=== PATIENT | female | born 1980 | race Caucasian/White ===

== ENCOUNTER 2024-05-11 09:47 | Emergency (ER) | payer OTHER, SELFPAY ==
[2024-05-11 09:58] VITALS: BP 128/81
--- NOTE | 2024-05-11 10:16 | ED.GENMED ---
History of Present Illness
General
Chief Complaint: Headache
Source: patient
Time Seen by Provider: 05/11/24 10:06
History of Present Illness
History of Present Illness:
43yoF with a history of migraines presenting with her for evaluation of a migraine x 2 weeks. She reports right sided temporal pain that intermittently radiates to the occipital region. Pain is currently a 5-6/10 in severity and a 7/10 in
severity at its worst. She denies this being the worst headache of her life but she has never had a headache last this long before. Her headache feels similar to her previous migraines. She has taken memantine, rizatriptan, and ibuprofen without
relief. She reports associated photophobia and phonophobia. She also reports tunnel vision which is classic for her migraines. Patient denies any head trauma, fevers, chills, vomiting, URI symptoms. Patient moved to the area 2 years ago and has
not reestablished with a neurologist.
Phy Exam
General Physical Exam
General Presentation: well appearing and no apparent distress
General age: appears stated age
General Skin: warm and dry
General Habitus: normal
General Mental: alert
ENT Exam
ENT Exam: TM's normal, neck supple and normocephalic
Additional ENT: No meningismus
Eye Exam
Eye Exam: PERRL and conjunctiva normal
Cardiovascular Exam
Cardiovascular Exam: regular rate/rhythm and no murmur
Pulmonary Exam
Pulmonary Exam: lungs clear, no respiratory distress, no crackles and no wheezing
Neurological Exam
Neurological Exam: alert, speech normal and other (No focal neuro deficits)
Olena Coma Scale
Eye Opening: Spontaneous
Verbal Response: Oriented
Motor Response: Obeys Commands
GCS Total Score: 15
Skin Exam
Skin Exam: normal color and warm/dry
Psychiatric Exam
Psychiatric Exam: normal mood/affect
Course
Orders/Labs/Results
Orders:
Orders
05/11/24 10:15
0.9% Sodium Chloride 1000 ml [Nss] 1,000 ml IV BOLUS
Dexamethasone Sod Phosphate [Decadron] 10 mg IV NOW STA
Diphenhydramine [Benadryl] 25 mg IV NOW STA
Ketorolac [Toradol] 15 mg IV NOW STA
Magnesium Sulfate 1 G/D5w [Magnesium Sulfate] 1 gm in 100 ml IV NOW
Metoclopramide [Reglan] 10 mg IV NOW STA
Test Result ONCE
05/11/24 10:36
HCG, Urine Qualitative Screen Urgent
Date Specimen was Collected: 05/11/24
Time Specimen was Collected: 10:17
Vital Signs
Initial and Last Documented VS:
Initial Vital Signs
Temp Pulse Resp BP Pulse Ox
97.9 F 90 16 128/81 100
05/11/24 09:58 05/11/24 09:58 05/11/24 09:58 05/11/24 09:58 05/11/24 09:58
Last Documented Vital Signs
Temp Pulse Resp BP Pulse Ox
97.9 F 90 16 128/81 100
05/11/24 09:58 05/11/24 09:58 05/11/24 09:58 05/11/24 09:58 05/11/24 09:58
MDM/Problems Addressed
Differential Diagnosis Includes:
43yoF here with a headache x 2 weeks. Hx of migraines and this feels similar. No head trauma, fevers, neck stiffness. Pain currently a 5-6/10 in severity. She is afebrile and hemodynamically stable. She is well appearing in no distress. No focal
deficits or meningismus noted on exam. Differential diagnosis includes but is not limited to: migraine, tension, headache, doubt subarachnoid hemorrhage, doubt meningitis
Initial ED plan: Defer head imaging at this time. Will give IV migraine cocktail and reassess.
*Critical Care Note
Total Time (30-74mins, 75-104mins- exclusive of procedures): Not Applicable
Update Note
Update Note:
Patient feeling improved on reassessment. Headache is currently a 3/10 in severity and she feels comfortable with discharge. Advised f/u with PCP and neurology. ED return precautions discussed. She was discharged in stable condition.
ED Attending Note
-
Portions of this chart may have been created with voice recognition software.� Occasional wrong word or��sound alike� substitutions may have occurred due to the inherent limitations of voice recognition software.
Discharge Plan
Departure
Patient Disposition: Home (Routine Discharge)
Date of Disposition: 05/11/24
Time of Disposition: 11:49
Patient with high blood pressure during this ER visit?: No
Discharge Problem:
Acute nonintractable headache
Instructions: Migraines (DC)
Prescriptions:
No Action
cephalexin 500 mg capsule
500 mg PO BID 14 Days Qty: 28 0RF
Referrals:
James Martinez MD [Active] -
Nguyen Siegel PA-C [Family Provider] -
Activity Restrictions/Additional Instructions:
Please follow-up with your family doctor and neurology. Return to the ER with any new or worsening symptoms.
Interventions
Interventions:
*Risk Screen - Suicide Last Done: 05/11/24 09:58
*General Assessment Last Done: 05/11/24 09:58
*Neglect/Abuse Screening Last Done: 05/11/24 09:58
ED- Fall Risk Assessment Last Done: 05/11/24 10:43
*ED COVID-19 Vaccine History Last Done: 05/11/24 10:43
*Nursing Disposition Last Done: 05/11/24 12:53
ED- Neurological Assessment Last Done: 05/11/24 10:43
Discharge Date and Time
Discharge Date/Time: 05/11/24 12:53
Print Language: CROATIAN
[2024-05-11] MEDS: BENADRYL 25 MG IV (10:27)
[2024-05-11] MEDS: DECADRON 10 MG IV (10:28)
[2024-05-11] MEDS: MAGNESIUM SULFATE 100 IV (10:28)
[2024-05-11] MEDS: NSS 1000 IV (10:29)
[2024-05-11] MEDS: TORADOL 15 MG IV ×2 (10:29→10:30)
[2024-05-11] MEDS: REGLAN 10 MG IV (10:31)
[2024-05-11 10:51] LABS: HCG, Urine Qualitative Screen Negative
== END 2024-05-11 12:53 | disposition home or self-care (01) ==
LOC: EMR 09:47
PROVIDERS: Physician Assistant; EMERGENCY PHYSICIAN Emergency Medicine; FAMILY PHYSICIAN Physician Assistant Medical
DX: R51.9 Headache, unspecified (principal); Z88.6 Allergy status to analgesic agent
CPT/HCPCS: 99284; 96365; 96375 ×4; 96361; 81025

== ENCOUNTER → 2024-08-10 07:52 | Outpatient (REF) | payer OTHER, SELFPAY | LOC: HWWDC 07:52 | PROVIDERS: ATTENDING PHYSICIAN Physician Assistant Medical | DX: Z12.31 Encounter for screening mammogram for malignant neoplasm of breast (principal); M54.9 Dorsalgia, unspecified; M54.2 Cervicalgia | CPT/HCPCS: 72052; 73030; 77063; 77067 ==

== ENCOUNTER → 2024-08-15 09:31 | Outpatient (REF) | payer OTHER, SELFPAY | LOC: WDC 09:31 | PROVIDERS: ATTENDING PHYSICIAN Physician Assistant Medical | DX: R92.8 Other abnormal and inconclusive findings on diagnostic imaging of breast (principal) | CPT/HCPCS: 76642 ==

== ENCOUNTER → 2024-10-02 08:55 | Outpatient (REF) | payer OTHER, SELFPAY | LOC: WDC 08:55 | PROVIDERS: ATTENDING PHYSICIAN Surgery; FAMILY PHYSICIAN Physician Assistant Medical | DX: N63.24 Unspecified lump in the left breast, lower inner quadrant (principal) | CPT/HCPCS: 88305; 19083; A4648 ==

== ENCOUNTER 2024-11-03 20:52 | Emergency (ER) | payer OTHER, SELFPAY ==
[2024-11-03 20:52] VITALS: BMI 27.5
[2024-11-03 20:54] VITALS: BP 111/87
--- NOTE | 2024-11-03 23:23 | ED.GENMED ---
History of Present Illness
General
Chief Complaint: Headache
Source: patient and family
Exam Limitations: none
Time Seen by Provider: 11/03/24 23:11
Nursing documentation reviewed up to this point in time: agreed with
History of Present Illness
History of Present Illness:
This is a pleasant 44-year-old female that presents to the emergency department with migraine headache. She has a history of chronic migraines and states that this 1 began on Tuesday. She has been taking rizatriptan at some NSAIDs but she has had
minimal relief. She has been able to eat or drink but does say that she is photophobic. Patient denies fever or chills. She states that this migraine is not as severe as some of her worst migraines. She is here because of the large activity of
the symptoms. She denies any nuchal rigidity.
Review of Systems
Review of Systems
Allergies reviewed?: Yes
All Other Systems: ROS reviewed and negative except as documented in HPI and ROS
Constitutional: Reports no symptoms
EENT: Reports no symptoms
Respiratory: Reports no symptoms
Cardiac: Reports no symptoms
ABD/GI: Reports no symptoms
: Reports no symptoms
Musculoskeletal: Reports no symptoms
Skin: Reports no symptoms
Neurological: Reports headache; Denies dizzy, weakness or numbness
Endocrine: Reports no symptoms
Hematologic/Lymphatic: Reports no symptoms
Psychiatric: Reports no symptoms
Phy Exam
General Physical Exam
General Presentation: well appearing and no apparent distress
General Skin: warm and dry
General Habitus: normal
General Mental: alert
General Hydration: appears well hydrated
ENT Exam
ENT Exam: EOMI, pharynx normal, neck supple and normocephalic
Eye Exam
Eye Exam: PERRL, cornea clear and conjunctiva normal
Cardiovascular Exam
Cardiovascular Exam: regular rate/rhythm, no edema, no murmur and normal peripheral pulses
Pulmonary Exam
Pulmonary Exam: lungs clear, no respiratory distress, no rales, no crackles, no rhonchi, no stridor, no wheezing and no cough
Gastrointestinal Exam
Gastrointestinal Exam: normal bowel sounds, non tender, soft, no organomegaly, no pulsatile mass and non distended
Neurological Exam
Neurological Exam: alert, oriented x3, no motor deficits and speech normal
Musculoskeletal Exam
Musculoskeletal Exam: full ROM and no edema
Skin Exam
Skin Exam: normal color, warm/dry, no rash and no petechia
Psychiatric Exam
Psychiatric Exam: normal mood/affect
Course
Orders/Labs/Results
Orders:
Orders
11/03/24 23:20
0.9% Sodium Chloride 1000 ml [Nss] 1,000 ml IV BOLUS
11/03/24 23:21
Dexamethasone Sod Phosphate [Decadron] 10 mg IV NOW STA
Diphenhydramine [Benadryl] 25 mg IV NOW STA
Ketorolac [Toradol] 15 mg IV NOW STA
Metoclopramide [Reglan] 10 mg IV NOW STA
Test Result ONCE
11/03/24 23:56
Complete Blood Count/With Diff Urgent
Comprehensive Metabolic Panel Urgent
HCG, Serum Qualitative Screen Urgent
Abnormal Lab Results
11/03/24
23:56
RBC 3.86 L 10^6/uL
(4.20-5.40)
Hct 35.3 L %
(37.0-47.0)
MCH 31.1 H pg
(27.0-31.0)
MPV 10.8 H fL
(7.4-10.4)
Neutrophils % 39.6 L %
(42.2-75.2)
11/03/24 23:56
11/03/24 23:56
Vital Signs
Initial and Last Documented VS:
Initial Vital Signs
Temp Pulse Resp BP Pulse Ox
97.5 F 78 18 111/87 100
11/03/24 20:54 11/03/24 20:54 11/03/24 20:54 11/03/24 20:54 11/03/24 20:54
Last Documented Vital Signs
Temp Pulse Resp BP Pulse Ox
97.5 F 75 16 112/84 97
11/03/24 20:54 11/03/24 22:00 11/03/24 22:00 11/03/24 23:51 11/04/24 01:00
*Critical Care Note
Total Time (30-74mins, 75-104mins- exclusive of procedures): Not Applicable
ED Attending Note
-
Portions of this chart may have been created with voice recognition software.� Occasional wrong word or��sound alike� substitutions may have occurred due to the inherent limitations of voice recognition software.
Discharge Plan
Departure
Patient Disposition: Home (Routine Discharge)
Date of Disposition: 11/04/24
Time of Disposition: 01:40
Patient with high blood pressure during this ER visit?: No
Condition: Good
Discharge Problem:
Headache, migraine
Instructions: Headache, Adult (DC)
Prescriptions:
No Action
cephalexin 500 mg capsule
500 mg PO BID 14 Days Qty: 28 0RF
Referrals:
Nguyen Siegel CRNP [Family Provider] -
Activity Restrictions/Additional Instructions:
It was a pleasure meeting you and taking part in your care. We hope for your continued healing and wellness.
Please read discharge instructions in their entirety. However, they are for general education and may not describe your exact diagnosis at discharge. Information on your ER visit and medical conditions were discussed with you along with appropriate
follow up information...
If indicated, please take your medications as instructed and indicated on discharge paperwork.
Please schedule a follow up appointment as directed. Call to schedule an appointment
Please return to the emergency department with ANY change in, persisting, or worsening of symptoms. If any of your symptoms do not improve, or persist, or become more severe within 6-12 hours, please return to the emergency department for further
care.
Please return to the emergency department if you develop a headache, neck pain/stiffness, fever greater than 100.4F, chest pain, shortness of breath, persistent nausea, vomiting, slurred speech, difficulty walking, numbness/tingling, weakness, signs
of infection or any other symptoms that are worrisome to you.
If you have any questions or concerns please do not hesitate to call the Hospital at or E-mail me directly at [email or web address]
Interventions
Interventions:
*Risk Screen - Suicide Last Done: 11/03/24 20:54
*General Assessment Last Done: 11/03/24 20:54
*Neglect/Abuse Screening Last Done: 11/03/24 20:54
ED- Fall Risk Assessment Last Done: 11/04/24 00:20
*ED COVID-19 Vaccine History Last Done: 11/03/24 20:54
ED- Neurological Assessment Last Done: 11/04/24 00:20
Discharge Date and Time
Print Language: TAMAZIGHT
[2024-11-03] MEDS: NSS 1000 IV (23:35)
[2024-11-03] MEDS: DECADRON 10 MG IV (23:36)
[2024-11-03] MEDS: TORADOL 15 MG IV (23:36)
[2024-11-03] MEDS: BENADRYL 25 MG IV (23:37)
[2024-11-03] MEDS: REGLAN 10 MG IV (23:39)
[2024-11-03 23:51] VITALS: BP 112/84
[2024-11-04 00:20] LABS: HCG, Serum Qualitative Screen Negative
[2024-11-04 00:21] LABS: Hematocrit 35.3 % (37.0-47.0); Mean Corpuscular Hgb 31.1 pg (27.0-31.0); Mean Corpuscular Volume 91.5 fL (81.0-99.0); Mean Platelet Volume 10.8 fL (7.4-10.4); Platelet Count 220 10^3/uL (130-400); Red Blood Cell Count 3.86 10^6/uL (4.20-5.40); Red Cell Dist. Width 12.3 % (11.5-14.5); White Blood Cell Count 5.9 10^3/uL (4.8-10.8)
[2024-11-04 00:24] LABS: ALT (SGPT) 17 U/L (0-35); AST (SGOT) 14 U/L (14-36); Albumin 4.1 g/dl (3.5-5.0); Alkaline Phosphatase 60 U/L (38-126); Blood Urea Nitrogen 12 mg/dl (7-17); Calcium 9.5 mg/dl (8.4-10.2); Carbon Dioxide 23 mmol/L (22-30); Chloride 107 mmol/L (98-107); Estimated Creatinine Clearance 96 ml/min; Glucose 90 mg/dl (70-99); Potassium 3.9 mmol/L (3.5-5.1); Sodium 136 mmol/L (135-145); Total Bilirubin 0.4 mg/dl (0.2-1.3); Total Protein 6.6 g/dl (6.3-8.2); eGFR > 60.00
[2024-11-04 00:30] LABS: % Immature Granulocytes 0.2 % (0-0.5); % Lymphocytes 50.8 % (20.5-51.1); % Monocytes 6.4 % (1.7-9.3); % Neutrophils 39.6 % (42.2-75.2); Absolute Basophils 0.1 10^3/uL (0-0.2); Absolute Eosinophils 0.1 10^3/uL (0-0.7); Absolute Monocytes 0.4 10^3/uL (0.1-0.6); Absolute Neutrophils 2.3 10^3/uL (1.4-6.5); Nucleated Red Blood Cells % 0 %
== END 2024-11-04 01:47 | disposition home or self-care (01) ==
LOC: EMR 20:52
PROVIDERS: EMERGENCY PHYSICIAN Student in an Organized Health Care Education/Training Program; FAMILY PHYSICIAN Nurse Practitioner Adult Health
DX: G43.909 Migraine, unspecified, not intractable, without status migrainosus (principal)
CPT/HCPCS: 99283; 96374; 96375; 80053; 84703; 85025

== ENCOUNTER → 2025-03-19 07:52 | Outpatient (REF) | payer OTHER, SELFPAY | LOC: WDC 07:52 | PROVIDERS: ATTENDING PHYSICIAN Surgery | DX: R92.8 Other abnormal and inconclusive findings on diagnostic imaging of breast (principal) | CPT/HCPCS: 76642 ==

== ENCOUNTER 2025-05-19 05:19 | Emergency (ER) | payer OTHER, SELFPAY ==
[2025-05-19 05:20] VITALS: BP 116/80
--- NOTE | 2025-05-19 07:31 | ED.GENMED ---
History of Present Illness
General
Chief Complaint: Musculo-Skeletal Complaint
Source: patient
Time Seen by Provider: 05/19/25 07:13
History of Present Illness
History of Present Illness:
44-year-old female with no significant past medical history presenting to the emergency department for evaluation after injuring her right wrist when she accidentally slipped on her kitchen floor when she had spilled some soup stating she tried to
brace herself with her right wrist now noting continued pain especially with rotational movements but stating that she feels she is able to flex and extend her wrist without much pain or difficulty. Patient notes previous injury/surgery to her
right elbow but states this is not hurting her today. She is right-hand dominant, no other injuries were sustained.
Past History
Past History
ED Past Medical History: Other (Migraines)
ED Past Surgical History: None
Social History
Tobacco: Non-smoker
Alcohol: Occasional
Drug: None
Personal:
Living: with family
Employment: Employed
Review of Systems
Review of Systems
All Other Systems: ROS reviewed and negative except as documented in HPI and ROS
Phy Exam
Physical Exam
Physical Exam:
GENERAL: Alert , in no apparent distress
EYE: conjunctiva clear
Head: Normocephalic atraumatic
NECK: Supple,
ENT: mmm.
LUNGS: no acute respiratory distress
NEUROLOGICAL: Alert and oriented
SKIN: Warm and dry, skin intact.
MUSCULOSKELETAL: Right upper extremity: There is no obvious deformity, erythema, edema, ecchymosis, abrasion or laceration. No focal areas of tenderness, generally tender along the ulnar aspect of the wrist. No snuffbox tenderness. No tenderness
along the mid to proximal forearm/elbow. Patient is able to flex and extend her wrist actively as well as passively without much pain stating it just feels stiff. She does report pain with attempted pronation and supination only at the wrist.
Easily palpable radial pulse. Cap refill less than 2 seconds and sensation is grossly intact to light touch
PSYCH: Normal and appropriate interaction.
Scores
Heart Failure Risk
Heart Failure Risk Score: Not Applicable
Heart Score for Chest Pain Patients
STEMI patient?: Not applicable
Withdrawal Assessment of Alcohol
Withdrawal Assessment Completed?: Not applicable
Course
Orders/Labs/Results
Orders:
Orders
05/19/25 05:23
Wrist, Right 3 Views [CR Wrist - Right Min 3 Views] Urgent
Comment:
Reason For Exam: FALL
Vital Signs
Initial and Last Documented VS:
Initial Vital Signs
Temp Pulse Resp BP Pulse Ox
97.4 F 82 18 116/80 100
05/19/25 05:20 05/19/25 05:20 05/19/25 05:20 05/19/25 05:20 05/19/25 05:20
Last Documented Vital Signs
Temp Pulse Resp BP Pulse Ox
97.4 F 79 20 124/79 98
05/19/25 05:20 05/19/25 07:41 05/19/25 07:41 05/19/25 07:41 05/19/25 07:41
Procedures
Splinting/Sling Placement
Right Wrist:
Procedure completed by: Maverick
Pre-splint extermity exam: neurovascular intact
Type of splint: volar
Splint material: other (3 inch Ortho-Glass)
Splint checked by provider?: Yes
Normal distal neurovascular exam?: Yes
MDM/Problems Addressed
Differential Diagnosis Includes:
Sprain
Fracture
Dislocation
Contusion
Carpal injury
No concern for neurovascular compromise
MDM/Problems Addressed:
44-year-old female presenting to the emergency department for evaluation of a right wrist injury that occurred yesterday evening. X-ray of the wrist was ordered from triage which appears to show no acute fracture or dislocation. Given the pain
that patient experienced with rotational movements I did decide to place a splint in case of subtle or nondisplaced fracture or carpal injury/ligamentous injury. Encourage close follow-up with orthopedics for further evaluation especially if pain
persists. NSAIDs/Tylenol as needed for pain. Stable for discharge home otherwise
*Radiology
Radiology exam reviewed: preliminary read by ED provider (No acute fracture)
*Pulse Oximetry
SaO2: 100
Oxygen Mode of Delivery: Room air
Patient hypoxic: no
*Critical Care Note
Total Time (30-74mins, 75-104mins- exclusive of procedures): Not Applicable
ED Attending Note
-
Portions of this chart may have been created with voice recognition software.� Occasional wrong word or��sound alike� substitutions may have occurred due to the inherent limitations of voice recognition software.
Discharge Plan
Departure
Patient Disposition: Home (Routine Discharge)
Date of Disposition: 05/19/25
Time of Disposition: 07:31
Patient with high blood pressure during this ER visit?: No
Discharge Problem:
Injury of right wrist
Instructions: Wrist Sprain ED
Prescriptions:
No Action
cephalexin 500 mg capsule
500 mg PO BID 14 Days Qty: 28 0RF
Referrals:
Rory Etienne MD [Active, Orthopedics]
Nguyen Siegel PA-C [Family Provider, Family Practice]
Interventions
Interventions:
*Risk Screen - Suicide Last Done: 05/19/25 05:20
*General Assessment Last Done: 05/19/25 07:10
*Neglect/Abuse Screening Last Done: 05/19/25 05:20
*ED COVID-19 Vaccine History Last Done: 05/19/25 07:10
*Nursing Disposition Last Done: 05/19/25 07:41
ED-Musculoskeletal Assessment Last Done: 05/19/25 07:10
Discharge Date and Time
Discharge Date/Time: 05/19/25 07:42
Print Language: [email or web address]
[2025-05-19 07:41] VITALS: BP 124/79
== END 2025-05-19 07:42 | disposition home or self-care (01) ==
LOC: EMR 05:19
PROVIDERS: EMERGENCY PHYSICIAN Emergency Medicine; FAMILY PHYSICIAN Physician Assistant Medical
DX: S69.91XA Unspecified injury of right wrist, hand and finger(s), initial encounter (principal); W01.0XXA Fall on same level from slipping, tripping and stumbling without subsequent striking against object, initial encounter; Y92.000 Kitchen of unspecified non-institutional (private) residence as the place of occurrence of the external cause; G43.909 Migraine, unspecified, not intractable, without status migrainosus; Z88.6 Allergy status to analgesic agent
CPT/HCPCS: 99283; 29125; 73110

== ENCOUNTER → 2025-08-12 07:51 | Outpatient (REF) | payer OTHER, SELFPAY | LOC: HWWDC 07:51 | PROVIDERS: FAMILY PHYSICIAN Physician Assistant Medical; REFERRING PHYSICIAN Surgery | DX: Z12.31 Encounter for screening mammogram for malignant neoplasm of breast (principal) | CPT/HCPCS: 77063; 77067 ==